=== PATIENT | male | born 1960 | race Caucasian/White ===

== ENCOUNTER → 2016-08-13 | Outpatient (REF) | payer BC ==
[~2016-08-13] MED LIST: AML5T PO; ASP81TEC PO; ATOR10TA56 PO; LOSA100T8 PO; MULT-954 PO; TBR.3OP51 OD
[2016-08-13 11:19] LABS: ALBUMIN 4.1 g/dL (3.4-5.0); TOTAL PROTEIN 6.9 g/dL (6.4-8.5)
== END ==
LOC: LAB 10:11
PROVIDERS: ATTEND Nurse Practitioner Family
DX: E78.2 Mixed hyperlipidemia (principal)
CPT/HCPCS: 80061; 80076

== ENCOUNTER → 2016-10-27 | Outpatient (CLI) | payer BC ==
[2016-10-27 13:56] VITALS: BP 120/72
== END ==
LOC: MHUC 11:43
PROVIDERS: ATTEND Physician Assistant
DX: S05.01XA Injury of conjunctiva and corneal abrasion without foreign body, right eye, initial encounter (principal); W45.8XXA Other foreign body or object entering through skin, initial encounter; Y93.H2 Activity, gardening and landscaping
CPT/HCPCS: 99212

== ENCOUNTER 2016-11-04 12:03 | Emergency (ER) | payer BC ==
[~2016-11-04] VITALS: Ht 180.3 cm; Wt 86.3 kg
[~2016-11-04 12:03] MED LIST changes: -AML5T PO; -ASP81TEC PO; -ATOR10TA56 PO; -LOSA100T8 PO; -MULT-954 PO
--- OUTSIDE RECORDS SUMMARY | 2016-11-04 12:07 | XMS REPORT ---
Author Author Dandre Dalton Organization [employer] Address Unknown Phone Unavailable Care Team Providers Care Artists' Model Name Role Phone Dandre Dalton CP Unavailable Allergies No Known Allergies Problems Problem Type Condition Code Onset Dates Condition Status Problem Hypertension I10 Active Problem Tobacco abuse Z72.0 Active Problem Hyperlipidemia E78.5 Active Problem Bradycardia R00.1 Active Medications No Known Medications Results No Known Results Summary Purpose [employer] Submission
[2016-11-04] MEDS ORDERED: ATOR10TA56 PO (12:53)
[2016-11-04] MEDS ORDERED: LOSA100T8 PO (12:53)
[2016-11-04] MEDS ORDERED: AML5T PO (12:53)
[2016-11-04] MEDS ORDERED: ASP81TEC PO (12:53)
[2016-11-04] MEDS ORDERED: MULT-954 PO (12:54)
--- NOTE | 2016-11-04 15:16 | Diagnostic Imaging Report ---
INDICATION: Ankle pain. COMPARISON: None available. TECHNIQUE: Three radiographs of the right ankle dated November 04, 2016. FINDINGS: No acute fracture or dislocation. A 5 mm lucency is noted within the lateral aspect of the talar dome. Otherwise, the talar dome is unremarkable. Ankle mortise is symmetric. Significant soft tissue swelling about the ankle, particularly laterally. Tiny posterior and plantar calcaneal enthesophytes. No suspicious radiopaque foreign body. IMPRESSION: 1. There is a 5 mm lucency associated with the lateral aspect of the talar dome. This may relate to a small osteochondral defect, of uncertain chronicity. Comparison to prior imaging of recommended. If clinically indicated, MRI of the ankle could help to further evaluate. 2. Diffuse soft tissue swelling of the ankle, particularly laterally. 3. No additional acute fracture or dislocation. Dictated by: Dictated on workstation # [id number]
--- NOTE | 2016-11-04 15:18 | Diagnostic Imaging Report ---
INDICATION: Fall, pain. COMPARISON: December 12, 2009. TECHNIQUE: Three radiographs of the right hip dated November 04, 2016. FINDINGS: Nondisplaced fracture of the right femoral neck is identified. No additional fracture or dislocation. Minimal degenerative changes of the right hip. The right sacroiliac joint appears intact. Phleboliths within the lower pelvis. No suspicious radiopaque foreign body. IMPRESSION: Nondisplaced right femoral neck fracture. Mateo from the [facility] called for results on this report. Dictated by: Dictated on workstation # [id number]
--- NOTE | 2016-11-04 15:37 | NUR ---
This nurse tries to call [facility] for patient report - patient going to room 4914. News Videotape Editor states that no nurse is available at the time but will call back fore report. This nurse states that EMS is in route to ED and patient will be there in apprximately 1.5-2 hours. Verbalizes understanding.
[2016-11-04] MEDS ORDERED: HYDROmorphone 1 MG/ML (DILAUDID) SYRINGE IV ONE (15:40)
[2016-11-04] MEDS ORDERED: ONDANSETRON 2 MG/ML (Z0FRAN) 2 ML VIAL IV ONE (15:45)
[2016-11-04 16:05] VITALS: BP 128/81
== END 2016-11-04 16:10 | disposition short-term general hospital (02) ==
LOC: ED 12:05
DX: S72.091A Other fracture of head and neck of right femur, initial encounter for closed fracture (principal); S93.401A Sprain of unspecified ligament of right ankle, initial encounter; W11.XXXA Fall on and from ladder, initial encounter
CPT/HCPCS: 73502; 73610; 96374; 96375; 99283; J1170; J2405

== ENCOUNTER → 2016-11-04 | Outpatient (CLI) | payer BC | LOC: EMS 16:08 | PROVIDERS: ATTEND Orthopaedic Surgery Orthopaedic Trauma | DX: S72.091A Other fracture of head and neck of right femur, initial encounter for closed fracture (principal); W11.XXXA Fall on and from ladder, initial encounter; Y93.89 Activity, other specified; Y92.008 Other place in unspecified non-institutional (private) residence as the place of occurrence of the external cause ==

== ENCOUNTER → 2016-11-14 | Outpatient (CLI) | payer BC ==
[~2016-11-14] MED LIST changes: +AML5T PO; +ASP81TEC PO; +ATOR10TA56 PO; +LOSA100T8 PO; +MULT-954 PO
--- NOTE | 2016-11-14 13:38 | Diagnostic Imaging Report ---
ANKLE, RIGHT, 3 VIEWS COMPARISON: 11/04/2016. INDICATION: Persistent ankle pain and swelling. TECHNIQUE: Non-weight bearing AP, oblique, and lateral views. FINDINGS: No fracture or traumatic malalignment. Unchanged 5 mm subchondral lucency in the lateral aspect of the talar dome. Tibiotalar joint space is maintained. Unchanged diffuse soft tissue swelling about the ankle. IMPRESSION: 1. Stable subchondral lucency in the lateral aspect of the talar dome which could relate to a post traumatic osteochondral lesion. CT or MRI could be performed for further evaluation, as clinically indicated. 2. Unchanged diffuse soft tissue swelling about the ankle. Dictated by: Dictated on workstation # [id number]
== END ==
LOC: RAD 12:28
PROVIDERS: ATTEND Nurse Practitioner Family
DX: M25.571 Pain in right ankle and joints of right foot (principal)
CPT/HCPCS: 73610